=== PATIENT | female | born 1995 | race Caucasian/White ===

== ENCOUNTER 2017-11-19 17:07 | Emergency (ER) | payer OTHER ==
[2017-11-19 19:09] LABS: Absolute Lymphocytes (CBC) 1.5 K/uL (0.7-4.9); Absolute Monocytes 0.4 K/uL (0.1-1.3); Absolute Neutrophil 10.2 K/uL (1.8-8.0); Basophils % 0.1 % (0-1.3); Eosinophils % 0.7 % (0-4.4); Hematocrit 38.8 % (36.0-45.0); Lymphocytes % 12.4 % (15.3-44.8); MCH 31.5 pg (27.0-35.0); MCV 94.1 fL (80-100); MPV 9.3 fL (7.6-11.3); Monocytes % 3.4 % (3.3-12.3); RBC Red Blood Cell Count 4.12 M/uL (3.86-4.86)
[2017-11-19] MEDS ORDERED: NA CHLORIDE 0.9% 1,000 ML ONE (19:11)
[2017-11-19 19:26] LABS: Albumin 3.2 g/dL (3.4-5.0); Bilirubin Direct 0.1 mg/dL (0-0.2); Bilirubin Total 0.4 mg/dL (0.2-1.0); Potassium 3.6 mmol/L (3.5-5.1); Protein, Total 7.2 g/dL (6.4-8.2)
--- NOTE | 2017-11-19 19:40 | RAD REPORT ---
EXAM DESCRIPTION: US - Abdomen Exam Limited - 11/19/2017 6:59 pm CLINICAL HISTORY: Abdominal pain. COMPARISON: None. FINDINGS: The gallbladder wall is not thickened. A gallstone is not seen. The biliary tree is normal caliber. IMPRESSION: Unremarkable gallbladder ultrasound.
--- NOTE | 2017-11-19 20:03 | EDPHYS ---
Physician Documentation [facility] Name: Gladys Gómez Age: 22 yrs Sex: Female : 1995 Arrival Date: 11/19/2017 Time: 17:08 Bed 17 Private MD: ED Physician Edin Ziegler HPI: 11/19 18:32 This 22 yrs old Female presents to ER via Ambulatory with complaints of nayana Abdominal Pain - [facility] 11/12. 18:32 The patient presents with abdominal pain in the epigastric area, in the upper abdomen. nayana Onset: The symptoms/episode began/occurred today. The symptoms do not radiate. Associated signs and symptoms: none. The symptoms are described as crampy. Modifying factors: The symptoms are alleviated by nothing, the symptoms are aggravated by nothing. Severity of pain: At its worst the pain was mild in the emergency department the pain is unchanged. The patient has not experienced similar symptoms in the past. 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 - Social history:: Smoking status: Patient uses tobacco products, smokes one pack cigarettes per day. Patient/guardian denies using alcohol. - Ebola Screening: : Patient negative for fever greater than or equal to 101.5 degrees Fahrenheit, and additional compatible Ebola Virus Disease symptoms Patient denies exposure to infectious person Patient denies travel to an Ebola-affected area in the 21 days before illness onset No symptoms or risks identified at this time. - Family history:: not pertinent. ROS: 18:32 Constitutional: Negative for fever, chills, and weight loss, Eyes: Negative for injury, nayana pain, redness, and discharge, ENT: Negative for injury, pain, and discharge, Neck: Negative for injury, pain, and swelling, Cardiovascular: Negative for chest pain, palpitations, and edema, Respiratory: Negative for shortness of breath, cough, wheezing, and pleuritic chest pain, Back: Negative for injury and pain, : Negative for injury, bleeding, discharge, and swelling, MS/Extremity: Negative for injury and deformity, Skin: Negative for injury, rash, and discoloration, Neuro: Negative for headache, weakness, numbness, tingling, and seizure, Psych: Negative for depression, anxiety, suicide ideation, homicidal ideation, and hallucinations, Allergy/Immunology: Negative for hives, rash, and allergies, Endocrine: Negative for neck swelling, polydipsia, polyuria, polyphagia, and marked weight changes, Hematologic/Lymphatic: Negative for swollen nodes, abnormal bleeding, and unusual bruising. 18:32 Abdomen/GI: Positive for abdominal pain, of the right upper quadrant and left upper quadrant. Exam: 18:32 Constitutional: This is a well developed, well nourished patient who is awake, alert, nayana and in no acute distress. Head/Face: Normocephalic, atraumatic. Eyes: Pupils equal round and reactive to light, extra-ocular motions intact. Lids and lashes normal. Conjunctiva and sclera are non-icteric and not injected. Cornea within normal limits. Periorbital areas with no swelling, redness, or edema. ENT: Nares patent. No nasal discharge, no septal abnormalities noted. Tympanic membranes are normal and external auditory canals are clear. Oropharynx with no redness, swelling, or masses, exudates, or evidence of obstruction, uvula midline. Mucous membranes moist. Neck: Trachea midline, no thyromegaly or masses palpated, and no cervical lymphadenopathy. Supple, full range of motion without nuchal rigidity, or vertebral point tenderness. No Meningismus. Chest/axilla: Normal chest wall appearance and motion. Nontender with no deformity. No lesions are appreciated. Cardiovascular: Regular rate and rhythm with a normal S1 and S2. No gallops, murmurs, or rubs. Normal PMI, no JVD. No pulse deficits. Respiratory: Lungs have equal breath sounds bilaterally, clear to auscultation and percussion. No rales, rhonchi or wheezes noted. No increased work of breathing, no retractions or nasal flaring. Abdomen/GI: Soft, non-tender, with normal bowel sounds. No distension or tympany. No guarding or rebound. No evidence of tenderness throughout. Back: No spinal tenderness. No costovertebral tenderness. Full range of motion. Skin: Warm, dry with normal turgor. Normal color with no rashes, no lesions, and no evidence of cellulitis. MS/ Extremity: Pulses equal, no cyanosis. Neurovascular intact. Full, normal range of motion. Neuro: Awake and alert, GCS 15, oriented to person, place, time, and situation. Cranial nerves II-XII grossly intact. Motor strength 5/5 in all extremities. Sensory grossly intact. Cerebellar exam normal. Normal gait. Psych: Awake, alert, with orientation to person, place and time. Behavior, mood, and affect are within normal limits. Vital Signs: 17:27 BP 122 / 80; Pulse 125; Resp 16; Temp 97.2; Pulse Ox 98% ; Weight 110.68 kg; Height 5 bp ft. 8 in. (172.72 cm); 18:00 Pulse 106; Resp 22; Pulse Ox 99% on R/A; ch 19:15 BP 123 / 85; Pulse 97; Resp 19 S; Temp 97.8(O); Pulse Ox 99% on R/A; cc3 20:30 BP 118 / 72; Pulse 89; Resp 20 S; Pulse Ox 99% on R/A; cc3 17:27 Body Mass Index 37.10 (110.68 kg, 172.72 cm) bp MDM: 18:25 Patient medically screened. [facility] 18:34 Data reviewed: vital signs, nurses notes, lab test result(s), radiologic studies, nayana ultrasound. 11/19 18:31 Order name: Basic Metabolic Panel; Complete Time: 19:53 [facility] 11/19 18:31 Order name: CBC with Diff; Complete Time: 19:53 [facility] 11/19 18:31 Order name: Creatinine for Radiology; Complete Time: 19:53 [facility] 11/19 18:31 Order name: Hepatic Function; Complete Time: 19:53 [facility] 11/19 18:31 Order name: Lipase; Complete Time: 19:53 [facility] 11/19 18:31 Order name: IV Saline Lock; Complete Time: 18:51 [facility] 11/19 18:31 Order name: Labs collected and sent; Complete Time: 18:51 [facility] 11/19 18:31 Order name: US Abdomen Limited; Complete Time: 19:53 [facility] 11/19 20:15 Order name: Urine Dipstick--Ancillary (enter results) mt Administered Medications: 19:10 Drug: NS 0.9% 1000 ml Route: IV; Rate: 1 bolus; Site: right antecubital; cc3 20:10 Follow up: Response: No adverse reaction; IV Status: Completed infusion; IV Intake: cc3 1000ml 20:25 Drug: Rocephin - (cefTRIAXone) 1 grams Route: IVPB; Infused Over: 30 mins; Site: right cc3 antecubital; 20:55 Follow up: Response: No adverse reaction; IV Status: Completed infusion; IV Intake: [id number] Disposition: 11/19/17 20:03 Discharged to Home. Impression: Abdominal tenderness - sp c sec 11/12. - Condition is Stable. - Discharge Instructions: Abdominal Pain, Adult, Abdominal Pain, Adult, [id number]. - Prescriptions for Bentyl 20 mg Oral Tablet - take 1 tablet by ORAL route every 6 hours As needed; 20 tablet. Pepcid 20 mg Oral Tablet - take 1 tablet by ORAL route every 12 hours for 10 days; 20 tablet. - Medication Reconciliation Form, Thank You Letter, Antibiotic Education, Prescription Opioid Use form. - Follow up: Private Physician; When: 2 - 3 days; Reason: Recheck today's complaints, Continuance of care, Re-evaluation by your physician. - Problem is new. - Symptoms have improved. Signatures: Dispatcher [employer] EDEdin Santana MD MD cha Peltier, Brian, RN RN Jade Armas cc3 Corrections: (The following items were deleted from the chart) 20:59 20:03 11/19/2017 20:03 Discharged to Home. Impression: Abdominal tenderness - sp c sec cc3 11/12. Condition is Stable. Discharge Instructions: Abdominal Pain, Adult, Abdominal Pain, Adult, [id number]. Prescriptions for Pepcid 20 mg Oral Tablet - take 1 tablet by ORAL route every 12 hours for 10 days; 20 tablet. and Forms are Medication Reconciliation Form, Thank You Letter, Antibiotic Education, Prescription Opioid Use. Follow up: Private Physician; When: 2 - 3 days; Reason: Recheck today's complaints, Continuance of care, Re-evaluation by your physician. Problem is new. Symptoms have improved. naynaa
--- NOTE | 2017-11-19 20:03 | ER ---
Nurse's Notes [facility] Name: Gladys Gómez Age: 22 yrs Sex: Female : 1995 Arrival Date: 11/19/2017 Time: 17:08 Bed 17 Private MD: Diagnosis: Abdominal tenderness-sp c sec 11/12 Presentation: 11/19 17:24 Presenting complaint: Patient states: I JUST HAD A C SECTION ON THE SECOND AND I'M bp HAVING REALLY BAD CRAMPS UP HERE. AND I HAVE DIARRHEA. Transition of care: patient was not received from another setting of care. Onset of symptoms was November 19, 2017 at 14:00. Risk Assessment: Do you want to hurt yourself or someone else? Patient reports no desire to harm self or others. Initial Sepsis Screen: Does the patient meet any 2 criteria? HR > 90 bpm. Does the patient have a suspected source of infection? No. Patient's initial sepsis screen is negative. Care prior to arrival: None. 17:24 Method Of Arrival: Ambulatory bp 17:24 Acuity: YSABEL 3 bp Triage Assessment: 18:00 General: Appears in no apparent distress. comfortable, Behavior is calm, cooperative, ch appropriate for age. Pain: Complains of pain in left upper quadrant and right upper quadrant Pain currently is 8 out of 10 on a pain scale. Neuro: No deficits noted. Respiratory: Airway is patent Respiratory effort is even, unlabored, Breath sounds are clear bilaterally. GI: Abdomen is round non-distended, Bowel sounds present X 4 quads. Abd is soft X 4 quads Abdomen is tender to palpation in right upper quadrant and left upper quadrant Reports upper abdominal pain. : No signs and/or symptoms were reported regarding the genitourinary system. Derm: Skin is pink, warm \T\ dry. 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 - Social history:: Smoking status: Patient uses tobacco products, smokes one pack cigarettes per day. Patient/guardian denies using alcohol. - Ebola Screening: : Patient negative for fever greater than or equal to 101.5 degrees Fahrenheit, and additional compatible Ebola Virus Disease symptoms Patient denies exposure to infectious person Patient denies travel to an Ebola-affected area in the 21 days before illness onset No symptoms or risks identified at this time. - Family history:: not pertinent. Screenin:53 Abuse screen: Denies threats or abuse. Denies injuries from another. Nutritional ch screening: No deficits noted. Tuberculosis screening: No symptoms or risk factors identified. Fall Risk None identified. Assessment: 18:53 Reassessment: Patient appears in no apparent distress at this time. No changes from previously documented assessment. Patient and/or family updated on plan of care and expected duration. Pain level reassessed. Patient is alert, oriented x 3, equal unlabored respirations, skin warm/dry/pink. 19:05 Reassessment: Patient appears in no apparent distress at this time. Patient and/or ch family updated on plan of care and expected duration. Pain level reassessed. Patient is alert, oriented x 3, equal unlabored respirations, skin warm/dry/pink. 19:15 Reassessment: Patient appears in no apparent distress at this time. Patient and/or cc3 family updated on plan of care and expected duration. Pain level reassessed. Patient is alert, oriented x 3, equal unlabored respirations, skin warm/dry/pink. Received this female patient from morning shift INDU [facility] as a case of abdominal pain post-cesarian section. Patient just came back from ultrasound department. With IV cannula gauge 20 at the right ACV saline locked. 20:55 Reassessment: Patient appears in no apparent distress at this time. Patient and/or cc3 family updated on plan of care and expected duration. Pain level reassessed. Patient is alert, oriented x 3, equal unlabored respirations, skin warm/dry/pink. Dr. Ziegler discharged home the patient with prescription given. IV cannula removed and patient left ER vitally stable and ambulatory with her family. Vital Signs: 17:27 BP 122 / 80; Pulse 125; Resp 16; Temp 97.2; Pulse Ox 98% ; Weight 110.68 kg; Height 5 bp ft. 8 in. (172.72 cm); 18:00 Pulse 106; Resp 22; Pulse Ox 99% on R/A; ch 19:15 BP 123 / 85; Pulse 97; Resp 19 S; Temp 97.8(O); Pulse Ox 99% on R/A; cc3 20:30 BP 118 / 72; Pulse 89; Resp 20 S; Pulse Ox 99% on R/A; cc3 17:27 Body Mass Index 37.10 (110.68 kg, 172.72 cm) bp ED Course: 17:08 Patient arrived in ED. as 17:26 Triage completed. bp 17:27 Arm band placed on. bp 18:25 Edin Ziegler MD is Attending Physician. nayana 18:43 Hermelinda Huff, INDU is Primary Nurse. ch 18:50 No apparent distress. Resting quietly. ch 18:50 No provider procedures requiring assistance completed. Inserted saline lock: 20 gauge ch in right antecubital area, using aseptic technique. 18:53 Patient has correct armband on for positive identification. Placed in gown. Bed in low ch position. Call light in reach. Side rails up X 1. Pulse ox on. NIBP on. 18:59 US Abdomen Limited In Process Unspecified. EDMS 19:06 Report given to Jade. ch 19:09 Jade Moise is Primary Nurse. cc3 20:55 IV discontinued, intact, bleeding controlled, No redness/swelling at site. Pressure cc3 dressing applied. Administered Medications: 19:10 Drug: NS 0.9% 1000 ml Route: IV; Rate: 1 bolus; Site: right antecubital; cc3 20:10 Follow up: Response: No adverse reaction; IV Status: Completed infusion; IV Intake: cc3 1000ml 20:25 Drug: Rocephin - (cefTRIAXone) 1 grams Route: IVPB; Infused Over: 30 mins; Site: right cc3 antecubital; 20:55 Follow up: Response: No adverse reaction; IV Status: Completed infusion; IV Intake: [id number] Intake: 20:10 IV: 1000ml; Total: 1000ml. cc3 20:55 IV: 50ml; Total: 1050ml. cc3 Outcome: 20:03 Discharge ordered by . nayana 20:55 Discharged to home ambulatory, with family. cc3 20:55 Condition: stable 20:55 Discharge instructions given to patient, family, Instructed on discharge instructions, follow up and referral plans. medication usage, Demonstrated understanding of instructions, follow-up care, medications, Prescriptions given X 2. 20:59 Patient left the ED. cc3 Signatures: Dispatcher [employer] Hermelinda Islas, Edin Fairbanks RN, ch, MD MD cha Martinez, Amelia as Peltier, Brian, INDU RN Jade Armas cc3
[2017-11-19 20:20] LABS: Urine Blood 2+ (NEG); Urine Glucose NEGATIVE (NEG); Urine Protein NEGATIVE (NEG); Urine Specific Gravity 1.025 (1.005-1.030)
[2017-11-19] MEDS ORDERED: NA CHLORIDE 0.9% 50 ML IV ONE (20:30)
[2017-11-19] MEDS ORDERED: CEFTRIAXONE 1000 MG/VIAL ONE (20:30)
== END 2017-11-19 20:59 | disposition home or self-care (01) ==
LOC: ER 17:07
DX: R10.819 Abdominal tenderness, unspecified site (principal); Z98.890 Other specified postprocedural states; F17.210 Nicotine dependence, cigarettes, uncomplicated
CPT/HCPCS: 36415; 76705; 80048; 80076; 81003; 83690; 85025; 96361; 96365; 99284; J7030

== ENCOUNTER 2018-06-10 23:05 | Emergency (ER) | payer OTHER ==
--- OUTSIDE RECORDS SUMMARY | 2018-06-10 23:07 | XMS REPORT ---
:1995 Author Organization [facility] Address [address] [place] [address] [address]. [address] [place] [address] Care Team Providers Name Role Phone Unavailable Unavailable Unavailable Problems This patient has no known problems. Allergies, Adverse Reactions, Alerts This patient has no known allergies or adverse reactions. Medications This patient has no known medications.
[2018-06-11 00:09] LABS: Absolute Lymphocytes (CBC) 2.2 K/uL (0.7-4.9); Absolute Monocytes 0.4 K/uL (0.1-1.3); Basophils % 0.5 % (0-1.3); Eosinophils % 1.7 % (0-4.4); Hematocrit 39.4 % (36.0-45.0); MPV 10.4 fL (7.6-11.3); Monocytes % 6.4 % (3.3-12.3); RBC Red Blood Cell Count 4.31 M/uL (3.86-4.86)
[2018-06-11 00:27] LABS: Potassium 3.7 mmol/L (3.5-5.1)
[2018-06-11 00:49] LABS: Urine Bacteria 20-50 /HPF (<20); Urine Culture Reflex Order REFLEXED; Urine Mucus LIGHT /HPF (NONE SEEN); Urine RBC NONE SEEN /HPF (NONE SEEN)
--- NOTE | 2018-06-11 01:08 | ER ---
Nurse's Notes [facility] Name: Gladys Holley Age: 22 yrs Sex: Female : 1995 Arrival Date: 06/10/2018 Time: 23:13 Bed 8 Private MD: Diagnosis: Infections of genitourinary tract in Presentation: 06/10 23:18 Presenting complaint: Patient states: pt is 4 weeks . Reports pelvic cramping tl2 and vaginal pain x 2 hours. Denies bleeding. Transition of care: patient was not received from another setting of care. Onset of symptoms was June 10, 2018 at 21:00. Risk Assessment: Do you want to hurt yourself or someone else? Patient reports no desire to harm self or others. Initial Sepsis Screen: Does the patient meet any 2 criteria? No. Patient's initial sepsis screen is negative. Does the patient have a suspected source of infection? No. Patient's initial sepsis screen is negative. Care prior to arrival: None. 23:18 Method Of Arrival: Ambulatory tl2 23:18 Acuity: YSABEL 3 tl2 Triage Assessment: 23:19 General: Appears in no apparent distress. uncomfortable, Behavior is calm, cooperative, tl2 appropriate for age. Pain: Complains of pain in suprapubic area. 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 - Social history:: Smoking status: Patient uses tobacco products, denies chronic smoking, but will smoke occasionally. - Ebola Screening: : No symptoms or risks identified at this time. Screenin:30 Abuse screen: Denies threats or abuse. Denies injuries from another. Nutritional aa1 screening: No deficits noted. Tuberculosis screening: No symptoms or risk factors identified. Fall Risk None identified. Assessment: 23:30 General: Appears in no apparent distress. comfortable, Behavior is calm, cooperative, aa1 appropriate for age. Pain: Complains of pain in suprapubic area Quality of pain is described as crampy, Pain began 2 hours ago. Is continuous. Neuro: Level of Consciousness is awake, alert, obeys commands, Oriented to person, place, time, situation, Gait is steady. Respiratory: Airway is patent Respiratory effort is even, unlabored, Respiratory pattern is regular, symmetrical. GI: Reports cramping, Patient currently denies constipation, diarrhea, nausea, vomiting. : Reports cramping, Denies burning with urination, discharge, vaginal bleeding. EENT: No signs and/or symptoms were reported regarding the EENT system. Derm: Skin is intact, is healthy with good turgor, Skin is pink, warm \T\ dry. Musculoskeletal: Circulation, motion, and sensation intact. Capillary refill < 3 seconds. 06/11 01:06 Reassessment: Patient appears in no apparent distress at this time. Patient is alert, aa1 oriented x 3, equal unlabored respirations, skin warm/dry/pink. Discussed d/c \T\ f/u instructions with pt \T\ spouse; denies questions or concerns at this time. Ambulates to lobby with steady gait. Patient states feeling better. Vital Signs: 06/10 23:19 BP 116 / 72; Pulse 95; Resp 18; Temp 98.2(O); Pulse Ox 98% on R/A; Weight 83.01 kg; tl2 Height 5 ft. 8 in. (172.72 cm); Pain 4/10; 06/11 00:16 BP 109 / 67; Pulse 97; Resp 16; Pulse Ox 98% on R/A; Pain 4/10; aa1 01:06 BP 106 / 75; Pulse 82; Resp 16; Temp 98.0; Pulse Ox 99% on R/A; Pain 2/10; aa1 06/10 23:19 Body Mass Index 27.82 (83.01 kg, 172.72 cm) tl2 ED Course: 06/10 23:13 Patient arrived in ED. tl2 23:19 Triage completed. tl2 23:19 Arm band placed on right wrist. tl2 23:30 Patient has correct armband on for positive identification. Placed in gown. Bed in low aa1 position. Call light in reach. Pulse ox on. NIBP on. 23:35 Alexandro Rosen MD is Attending Physician. tw4 23:47 Angie Baird RN is Primary Nurse. aa1 23:55 Initial lab(s) drawn, by me, sent to lab. Inserted saline lock: 20 gauge in right aa1 antecubital area, using aseptic technique. Blood collected. 06/11 01:06 No provider procedures requiring assistance completed. IV discontinued, intact, aa1 bleeding controlled, No redness/swelling at site. Pressure dressing applied. Administered Medications: No medications were administered Outcome: 01:06 Discharged to home ambulatory, with significant other. aa1 01:06 Condition: good 01:06 Discharge instructions given to patient, significant other, Instructed on discharge instructions, follow up and referral plans. medication usage, Demonstrated understanding of instructions, follow-up care, medications, Prescriptions given X 1. 01:08 Discharge ordered by . tw4 01:27 Patient left the ED. aa1 Signatures: Angie Baird RN RN aa1 Cathy Powell RN RN tl2 Alexandro Rosen MD MD tw4
--- NOTE | 2018-06-11 01:08 | EDPHYS ---
Physician Documentation [facility] Name: Gladys Holley Age: 22 yrs Sex: Female : 1995 Arrival Date: 06/10/2018 Time: 23:13 Bed 8 Private MD: ED Physician Alexandro Rosen HPI: 06/11 01:21 This 22 yrs old Female presents to ER via Ambulatory with complaints of tw4 pelvic pain. 01:21 The patient presents with pelvic pain, that is located in/on the groin, the pain does tw4 not radiate, the pain is described as mild. Onset: The symptoms/episode began/occurred 2 hour(s) ago. Modifying factors: The symptoms are alleviated by nothing, the symptoms are aggravated by nothing. Associated signs and symptoms: The patient has no apparent associated signs or symptoms. Severity of symptoms: At their worst the symptoms were moderate, in the emergency department the symptoms are unchanged. The patient has not experienced similar symptoms in the past. 01:25 The patient is sexually active, reportedly has a single partner. 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 - Social history:: Smoking status: Patient uses tobacco products, denies chronic smoking, but will smoke occasionally. - Ebola Screening: : No symptoms or risks identified at this time. ROS: 06/11 01:21 Positive for pelvic pain, Negative for flank pain, burning with urination, vaginal tw4 bleeding, vaginal discharge, vaginal itching, menstrual abnormality. Constitutional: Negative for fever, chills, and weight loss, Eyes: Negative for injury, pain, redness, and discharge, Cardiovascular: Negative for chest pain, palpitations, and edema, Respiratory: Negative for shortness of breath, cough, wheezing, and pleuritic chest pain, Abdomen/GI: Negative for abdominal pain, nausea, vomiting, diarrhea, and constipation, Back: Negative for injury and pain. Exam: 01:21 Constitutional: This is a well developed, well nourished patient who is awake, alert, tw4 and in no acute distress. Head/Face: Normocephalic, atraumatic. Chest/axilla: Normal chest wall appearance and motion. Nontender with no deformity. No lesions are appreciated. Cardiovascular: Regular rate and rhythm with a normal S1 and S2. No gallops, murmurs, or rubs. Normal PMI, no JVD. No pulse deficits. Respiratory: Lungs have equal breath sounds bilaterally, clear to auscultation and percussion. No rales, rhonchi or wheezes noted. No increased work of breathing, no retractions or nasal flaring. Abdomen/GI: Soft, non-tender, with normal bowel sounds. No distension or tympany. No guarding or rebound. No evidence of tenderness throughout. Back: No spinal tenderness. No costovertebral tenderness. Full range of motion. MS/ Extremity: Pulses equal, no cyanosis. Neurovascular intact. Full, normal range of motion. Neuro: Awake and alert, GCS 15, oriented to person, place, time, and situation. Cranial nerves II-XII grossly intact. Motor strength 5/5 in all extremities. Sensory grossly intact. Cerebellar exam normal. Normal gait. 01:21 : Pelvic Exam: the exam is deferred. Vital Signs: 06/10 23:19 BP 116 / 72; Pulse 95; Resp 18; Temp 98.2(O); Pulse Ox 98% on R/A; Weight 83.01 kg; tl2 Height 5 ft. 8 in. (172.72 cm); Pain 4/10; 06/11 00:16 BP 109 / 67; Pulse 97; Resp 16; Pulse Ox 98% on R/A; Pain 4/10; aa1 01:06 BP 106 / 75; Pulse 82; Resp 16; Temp 98.0; Pulse Ox 99% on R/A; Pain 2/10; aa1 06/10 23:19 Body Mass Index 27.82 (83.01 kg, 172.72 cm) tl2 MDM: 06/10 23:41 Patient medically screened. tw4 06/11 01:25 Differential diagnosis: abruptio placentae, menorrhea, molar preganancy. Data reviewed: tw4 vital signs, nurses notes. 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 Counseling: I had a detailed discussion with the patient and/or guardian regarding: the historical points, exam findings, and any diagnostic results supporting the discharge/admit diagnosis, lab results. Special discussion: Based on the patient's Hx, exam, and Dx evaluation, there is no indication for emergent surgery or inpatient Tx. It is understood by the patient/guardian that if the Sx's persist or worsen they need to return immediately for re-evaluation. I discussed with the patient/guardian in detail that at this point there is no indication for admission to the hospital. It is understood, however, that if the symptoms persist or worsen the patient needs to return immediately for re-evaluation. 06/10 23:35 Order name: Quantitative Hcg [facility] 06/10 23:35 Order name: Basic Metabolic Panel [facility] 06/10 23:35 Order name: CBC with Diff [facility] 06/10 23:35 Order name: Urine Microscopic Only; Complete Time: 01:07 [facility] 06/11 01:07 Interpretation: Normal except: UBACT 20-50. [facility] 06/11 00:39 Order name: Urine Dipstick--Ancillary (enter results) id 06/11 00:39 Order name: Urine --Ancillary (enter results) id 06/10 23:35 Order name: IV Saline Lock; Complete Time: 00:05 [facility] 06/10 23:35 Order name: Labs collected and sent; Complete Time: 00:05 [facility] 06/10 23:35 Order name: NPO; Complete Time: 23:49 [facility] 06/10 23:35 Order name: Urine Dipstick-Ancillary (obtain specimen); Complete Time: 00:40 [facility] 06/11 00:51 Order name: Urine Culture [facility] Administered Medications: No medications were administered Disposition: 06/11/18 01:08 Discharged to Home. Impression: Infections of genitourinary tract in . - Condition is Stable. - Discharge Instructions: Urinary Tract Infection, Adult, and Urinary Tract Infection. - Prescriptions for Macrobid 100 mg Oral Capsule - take 1 capsule by ORAL route every 12 hours for 7 days; 14 capsule. - Medication Reconciliation Form, Thank You Letter, Antibiotic Education, Prescription Opioid Use form. - Follow up: Private Physician; When: Upon discharge from the Emergency Department; Reason: If symptoms return, Recheck today's complaints, Continuance of care. - Problem is new. - Symptoms have improved. Signatures: Dispatcher [employer] EDAngie Randall RN RN aa1 Cathy Powell RN RN tl2 Alexandro Rosen MD MD tw4 Corrections: (The following items were deleted from the chart) 01:27 01:08 06/11/2018 01:08 Discharged to Home. Impression: Infections of genitourinary aa1 tract in . Condition is Stable. Forms are Medication Reconciliation Form, Thank You Letter, Antibiotic Education, Prescription Opioid Use. Follow up: Private Physician; When: Upon discharge from the Emergency Department; Reason: If symptoms return, Recheck today's complaints, Continuance of care. Problem is new. Symptoms have improved. tw4
[2018-06-11 01:09] LABS: Urine Blood NEGATIVE (NEG); Urine Glucose NEGATIVE (NEG); Urine Protein NEGATIVE (NEG); Urine Specific Gravity 1.025 (1.005-1.030)
== END 2018-06-11 01:27 | disposition home or self-care (01) ==
LOC: ER 23:05
DX: O23.91 Unspecified genitourinary tract infection in pregnancy, first trimester (principal); O99.331 Smoking (tobacco) complicating pregnancy, first trimester; Z3A.01 Less than 8 weeks gestation of pregnancy
CPT/HCPCS: 36415; 80048; 81003; 81015; 81025; 84702; 85025; 87086; 87088; 99284

== ENCOUNTER 2020-07-16 23:33 | Emergency (ER) | payer OTHER, SELFPAY ==
--- OUTSIDE RECORDS SUMMARY | 2020-07-16 23:37 | XMS REPORT | Continuity of Care Document ---
:1995 Author Organization [facility] t Address [address] [place] [address] [address] [place] [address] Care Team Providers Name Role Phone Emile Funes DO Attending Clinician Jeff Naranjo MD Attending Clinician Abiel ALBA Attending Clinician Doctor Unassigned, Name Attending Clinician Unavailable Problems This patient has no known problems. Allergies, Adverse Reactions, Alerts This patient has no known allergies or adverse reactions. Medications This patient has no known medications. Procedures This patient has no known procedures. Encounters Start End Encounter Admission Attending Care Care Encounter Source Date/Time Date/Time Type Type Clinicians Facility Department ID 2020-05-03 2020-05-03 Patient Marin ROBYN [id number] 00:00:00 00:00:00 Outreach [facility] [id number] Emile [facility] [id number] PAVILLION [id number] [facility] 2019-06-09 2019-06-09 Telephone Amanda Naranjo [facility] [id number] 00:00:00 00:00:00 Jeff Villareal [id number] [place] [id number] Professio [phone] [address] 2019-04-28 2019-04-28 Telephone Jose A Amanda [facility] [id number] 00:00:00 00:00:00 Cam Dionna [id number] [place] [id number] Professio [phone] [address] 2019-04-21 2019-04-21 Office ROBYN Beebe [id number] 09:00:54 11:37:34 Visit Ashley Villareal [id number] [place] [id number] Belinda [phone] [facility] [address] [facility] 2019-04-15 2019-04-15 Orders Doctor SHERYL [id number] 00:00:00 00:00:00 Only Unassigned, JOE [id number] [place] [address] [facility] [phone] 009 Results This patient has no known results.
--- NOTE | 2020-07-17 00:50 | ER ---
Nurse's Notes [facility] Name: Gladys Holley Age: 24 yrs Sex: Female : 1995 Arrival Date: 07/16/2020 Time: 23:35 Bed Waiting Private MD: Diagnosis: Presentation: 07/16 23:53 Chief complaint: Spouse and/or significant other states: she had a drink tonight after rr5 that she complaint of trouble breathing and she started throwing up. Coronavirus screen: Client denies travel out of the [place] in the last 14 days. At this time, the client does not indicate any symptoms associated with coronavirus-19. Ebola Screen: Patient negative for fever greater than or equal to 101.5 degrees Fahrenheit, and additional compatible Ebola Virus Disease symptoms Patient denies exposure to infectious person. Patient denies travel to an Ebola-affected area in the 21 days before illness onset. Initial Sepsis Screen: Does the patient meet any 2 criteria? No. Patient's initial sepsis screen is negative. Does the patient have a suspected source of infection? No. Patient's initial sepsis screen is negative. Risk Assessment: Do you want to hurt yourself or someone else? Patient reports no desire to harm self or others. Onset of symptoms was July 16, 2020. 23:53 Method Of Arrival: Wheelchair rr5 23:53 Acuity: YSABEL 3 rr5 Triage Assessment: 07/17 00:03 General: Appears uncomfortable, Behavior is anxious. Pain: Denies pain. Neuro: Level of rr5 Consciousness is awake, alert, Oriented to person, place, time. Cardiovascular: Capillary refill < 3 seconds Patient's skin is warm and dry. Respiratory: Reports shortness of breath hyperventilate Airway is patent Respiratory effort is even, Respiratory pattern is hyperventilation brown bag applied Onset: The symptoms/episode began/occurred gradually, the patient has mild shortness of breath. 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 - Social history:: Smoking status: Patient reports the use of cigarette tobacco products, smokes one-half pack cigarettes per day, Patient uses alcohol, but reports only rare drinking. Patient/guardian denies using street drugs. Assessment: 07/17 00:20 Reassessment: the molder hand stated she feels better. rr5 00:48 Reassessment: candy from laboratory informed to cancel the laboratory test. rr5 Vital Signs: 07/16 23:53 BP 104 / 66; Pulse 96; Resp 29; Temp 97.6; Pulse Ox 100% ; Weight 90.72 kg; Height 5 rr5 ft. 8 in. (172.72 cm); Pain 0/10; 23:53 Body Mass Index 30.41 (90.72 kg, 172.72 cm) rr5 ED Course: 23:35 Patient arrived in ED. cf2 23:55 Triage completed. rr5 23:56 Arm band placed on right wrist. rr5 07/17 00:35 Patient's name was called from ER lobby. No response. rr5 00:42 Alexandro Rosen MD is Attending Physician. tw4 Administered Medications: 00:47 CANCELLED (eloped): NS 0.9% 1000 ml IV at 1 bolus Per protocol; 1000 mL bolus rr5 00:47 CANCELLED (eloped): Zofran (Ondansetron) 4 mg IVP once; over 2 minutes rr5 Outcome: 00:49 Patient left the ED. rr5 Signatures: Aelxandro Rosen MD MD tw4 Lopez Marshall RN RN rr5 Yahir Burns cf2 Corrections: (The following items were deleted from the chart) 00:46 00:20 Reassessment: Patient states symptoms have improved. rr5 rr5
[2020-07-17 01:09] VITALS: BP 104/66; TEMP 97.6; O2SAT 100
== END 2020-07-17 00:49 | disposition left against medical advice (07) ==
LOC: ER 23:33
DX: Z53.21 Procedure and treatment not carried out due to patient leaving prior to being seen by health care provider (principal)
CPT/HCPCS: 99281